=== PATIENT | female | born 1990 | race Caucasian/White ===

== ENCOUNTER 2017-01-17 14:19 | Observation (INO) | payer OTHER ==
[~2017-01-17] VITALS: Ht 165.1 cm; Wt 125.9 kg
[~2017-01-17 14:19] MED LIST: ALBU8.5H2 INHALATION; BENZ-12 PO; DIPH50C PO; Docusate Sodium PO; Ibuprofen PO; Oxycodone/Acetaminophen PO
[2017-01-17 14:24] VITALS: BP 150/116; PULSE 90; RESP 14; O2SAT 100
--- NOTE | 2017-01-17 14:48 | ED.REPORT ---
HPI-Chest Pain Under 40 Date of Service Jan 17, 2017 ED Provider: Jerrell Franz DO Pt is a 26 year old female with a hx of anxiety presenting to the ED complaining of intermittent aching chest pain left greater than right onset last night with episodes lasting about 5 seconds. Associated symptoms include passing more gas than usual, palpitations, nausea, and increased urinary frequency. Denies fever, chills, SOB, wheezing, lightheadedness, syncope, constipation, or vomiting. She has worn a halter monitor for a week in the past due to palpitations which was negative. She states that Dr. Flaherty did not see any PVCs on the halter monitor. Her mother and daughter both have a hx of prolonged QT syndrome. Pt has been off her Lexapro for just over a month. Nursing Notes Stated Complaint: CHEST PAIN/ RIGHT ANKLE PAIN Chief Complaint: Chest Pain Nursing Notes Reviewed: Yes Allergies: Coded Allergies: Shellfish (Verified Allergy, Severe, Throat sweling, 06/09/13) Iodine and Iodide Containing Produc (Verified Allergy, Unknown, 02/11/16) Scheduled Genevieve Root (Genevieve) 250 Mg Capsule 250 MG PO DAILY [place]-3 Fatty Acids (Fish Oil) 500 Mg Capsule.dr 500 MG PO DAILY Turmeric Root Extract (Turmeric) 500 Mg Capsule 500 MG PO DAILY Scheduled PRN Ibuprofen (Ibuprofen) 200 Mg Capsule 600 MG PO BID PRN PRN For Pain General Time Seen by MD: 14:46 Chief Complaint Chest pain Hx Obtained From: Patient Arrived By: Walk-in Sudden in Onset?: No Onset Occurred: Yesterday Symptom Duration: Intermittent Location: : Chest left: Chest right Severity: Current: No pain currently Severity: Maximum: Moderate Recent Healthcare: No recent hospitalization, Recent doctor visit Similar Sx Previous: Yes Past Medical History Past Medical History Possible prolonged Qt syndrome Past Surgical History Reports: (x2), Cholecystectomy Reports: Tubal ligation Family History Mother and daughter both have prolonged QT syndrome. Her mother had a cardiac arrest last month December 2016. Her aunt also had a cardiac arrest. Reports: Hypertension Reports: Other Smoking History Never Smoker Social History Drug Use: Denies drug use Other Social History: Local resident Ambulatory Status Independent Review of Systems Reports increased flatulence Constitutional: Denies: Chills, Fever Respiratory: Denies: Shortness of breath, Wheezing Cardiovascular: Reports: Chest pain, Palpitations GI: Reports: Nausea, Denies: Constipation, Vomiting Neurologic: Denies: Lightheaded, Syncope Complete sys rev & neg: except as marked. Female: Reports: Urinary frequency Physical Exam Initial Vital Signs Vital Signs (First) Date Time Temp Pulse Resp B/P Pulse Ox O2 Delivery O2 Flow Rate FiO2 01/17/17 14:24 36.7 90 14 150/116 100 Room Air Initial VS: Reviewed Head / Eyes: Atraumatic, Normocephalic, PERRL ENT: Mucous membranes moist, Conjunctiva normal, No scleral icterus Neck: Supple, Non-tender, Full range of motion Abdomen / GI: Soft, Non-tender, No guarding, No rebound, No distention Extremities: Vascular intact, Neuro intact, No swelling, No tenderness Skin: Warm, Dry, No cyanosis Neurologic: Alert, Oriented, Nonfocal Psychiatric: Mood/affect normal, Behavior normal, Normal thought content General/Constitutional: Awake, Alert Appearance / Presentation: Positive: Obese Respiratory / Chest: Atraumatic, Breath sounds NL, Breath sounds = bilat, No respiratory distress Cardiovascular: Heart rate NL, Regular rhythm, Heart sounds NL, No gallop, No murmurs, No rubs Interpretation & Diagnostics Lab Results Interpretation Result Diagram: 01/17/17 1446 01/17/17 1446 Test 01/17/17 14:46 01/17/17 15:57 White Blood Count 12.9th/mm3 (3.8-10.1) Red Blood Count 4.61mil/mm3 (3.90-5.20) Hemoglobin 13.7g/dL (12.0-15.6) Hematocrit 40.4% (35.0-46.0) Mean Corpuscular Volume 87.6fL (81-100) Mean Corpuscular Hemoglobin 29.7pg (27.0-35.0) Mean Corpuscular Hemoglobin Concent 33.9% (32.0-37.0) Red Cell Distribution Width 13.0% (12.3-15.4) Platelet Count 319bil/L (150-400) Neutrophils (%) (Auto) 79.7% (40-74) Lymphocytes (%) (Auto) 15.8% (14-46) Monocytes (%) (Auto) 3.9% (4-12) Eosinophils (%) (Auto) 0.2% (0-5) Basophils (%) (Auto) 0.2% (0-3) Sodium Level 140mEq/L (134-144) Potassium Level 3.9mEq/L (3.5-5.2) Chloride Level 103mEq/L (97-108) Carbon Dioxide Level 20mmol/L (18-29) Blood Urea Nitrogen 9mg/dL (6-20) Creatinine 0.61mg/dL (0.57-1.00) Estimat Glomerular Filtration Rate 167mL/min (>59) Glucose Level 102mg/dL (60-99) Calcium Level 9.4mg/dL (8.5-10.1) Magnesium Level 2.2mg/dL (1.6-2.6) Total Bilirubin 0.3mg/dL (0.0-1.2) Aspartate Amino Transf (AST/SGOT) 18U/L (0-50) Alanine Aminotransferase (ALT/SGPT) 20U/L (0-32) Alkaline Phosphatase 97U/L (25-150) Troponin T < 0.010ug/L (0.0-0.011) Total Protein 7.5g/dL (6.4-8.4) Albumin 4.2g/dL (3.4-5.0) Hold Urine Received (Received) ECG Interpretation ECG Interpretation: QTC 513. No other abnormalities. Time: 14:59 Interpreted by: ED physician Normal ECG Interpretation: Normal sinus rhythm (90) X-Ray Chest Interpretation Chest Xray Interpretation: IMPRESSION: Negative chest. No acute cardiopulmonary process is evident. Dictated by: Liam Ellington M.D. on 01/17/2017 at 14:29 View: Portable, 1 view Interpretation / Wet Read by: Interpret - Radiologist Re-Eval/Medical Decision Med Decision/Clinical Course Concern for arrhythmia with strong family history of long QT as well as familial history of cardiac arrest. Patient has a prolonged QT interval on EKG today. Cardiology is contacted and recommended admission and observation. Re-Evaluation/Progress #1: Time of Eval: 15:05 Patient Status: Condition improved Re-Evaluation/Progress Note: Discussed PMHX and performed physical exam. Re-Evaluation/Progress #2: Time of Eval: 16:00 Patient Status: Condition improved Re-Evaluation/Progress Note: Discussed EKG, lab and radiology results and plan for consultation with Dr. Flaherty. Re-Evaluation/Progress #3: Time of Eval: 16:15 Patient Status: Condition improved Re-Evaluation/Progress Note: Discussed consultation with Dr. Flaherty and plan for admission. Pt understands and agrees. Consultation #1: Referral / Consult Name: Anjel Flaherty MD Consulted With: Cardiology Call Returned at: 16:06 Note: Pt the pt on Propranolol. Admit the pt for observation on telemetry and further testing. Have the hospitalist call Dr. Flaherty in the morning and relay any findings. Consultation #2: Referral / Consult Name: Colby Morataya MD Consulted With: Hospitalist Call Returned at: 16:35 Plastic Molding Operator: Will see patient, Agrees with plan, Accepts admit Counseled Regarding: Diagnosis, Lab results, Need for admission Discharge & Departure Primary Impression: Long QT interval Additional Impression: Palpitations Disposition: ADMITTED TO HOSPITAL Discharge Condition All VS Reviewed: Yes Condition: Improved Referrals: Alcon Apple MD (PCP) Anjel Flaherty MD Attestation Portions of this note were transcribed by Emmanuelle Vasquez. I, Dr. Franz personally performed the history, physical exam and medical decision-making; I reviewed and confirmed the accuracy of the information in the transcribed note. Signed by: Pamela Clements, 01/17/2017. copies to: Alcon Apple MD; Anjel Flaherty MD, Timothy S DO Jan 17, 2017 14:48 EMMANUELLE VASQUEZ Jan 17, 2017 15:02
[2017-01-17 14:53] LABS: BASOPHILS % (AUTO) 0.2 % (0-3); EOSINOPHILS % (AUTO) 0.2 % (0-5); MONOCYTES % (AUTO) 3.9 % (4-12); Mean Corpuscular Hemoglobin 29.7 pg (27.0-35.0); Mean Corpuscular Volume 87.6 fL (81-100); NEUTROPHILS % (AUTO) 79.7 % (40-74); Platelet Count 319 bil/L (150-400)
[2017-01-17 15:31] LABS: Magnesium 2.2 mg/dL (1.6-2.6)
[2017-01-17 15:33] LABS: TROPONIN T < 0.010 ug/L (0.0-0.011)
--- NOTE | 2017-01-17 15:34 | DRSVH ---
PROCEDURE: X-RAY CHEST ONE VIEW, PORTABLE ([id number]) INDICATIONS: pain TECHNIQUE: One view of the chest was acquired. COMPARISON: [facility], CR, XR CHEST 2VW, 02/11/2016, 20:27. FINDINGS: Surgical changes and devices: None. Lungs and pleura: No pleural effusions or pneumothorax. Lungs are clear. Mediastinum: Mediastinal contours appear normal. Heart size is normal. Bones and chest wall: No suspicious bony lesions. Overlying soft tissues appear unremarkable. IMPRESSION: Negative chest. No acute cardiopulmonary process is evident. Dictated by: Liam Ellington M.D. on 01/17/2017 at 14:29 Approved by: Liam Ellington M.D. on 01/17/2017 at 14:32
[2017-01-17 16:12] VITALS: BP 148/84; PULSE 93; RESP 19; O2SAT 100
[2017-01-17] MEDS ORDERED: TURM500C3 PO (17:13)
[2017-01-17] MEDS ORDERED: GING250C PO (17:13)
[2017-01-17] MEDS ORDERED: IBUP200C PO (17:13)
[2017-01-17] MEDS ORDERED: OMEG500C PO (17:13)
[2017-01-17] MEDS ORDERED: Ondansetron 2 mg/mL 2 mL Inj IVPUSH PRN (17:15)
[2017-01-17] MEDS ORDERED: Alum-Mag Hydrox-Simeth 30 mL Suspension PO PRN (17:15)
--- NOTE | 2017-01-17 17:19 | PCM.HPMED ---
Subjective Date of Service Jan 17, 2017 Primary Provider: Admitting Physician: Colby Morataya MD Primary Care Physician: Alcon Apple MD Attending Physician: Colby Morataya MD Admit Status: From the Emergency Department, 23-Hour Observation, Admit to [facility], Remote Telemetry Chief Complaint: Palpitations History of Present Illness: This is a 26-year-old female palpitation since last admitted chest aching. She denies any exertional component to these symptoms. Nothing in particular is making them better or worse. She denies any syncopal episodes. She does have a known history of long QT. Her mother recently was hospitalized for a V. fib arrest and diagnosed QT syndrome and discharged with an ICD. Her daughter's been diagnosed clinically with a type II along QT syndrome as well. The patient had been working with Dr. Flaherty cardiology year ago was on propranolol 3 times a day. They were working towards definitive management of her possible QT syndrome and she lost her insurance. She has not had genetic testing. She denies recent rhinorrhea cough or sore throat. No nausea or dyspepsia. No exertional dyspnea, orthopnea or edema. No history of syncope. Review of Systems: She denies recent diarrhea and hematuria dysuria. No fevers or chills. Some anxiety over being in the emergency department. All else reviewed and otherwise unremarkable except as noted in history of present illness. Allergies Coded Allergies: Shellfish (Verified Allergy, Severe, Throat sweling, 06/09/13) Iodine and Iodide Containing Produc (Verified Allergy, Unknown, 02/11/16) Home Medications Scheduled Genevieve Root (Genevieve) 250 Mg Capsule 250 MG PO DAILY [place]-3 Fatty Acids (Fish Oil) 500 Mg Capsule.dr 500 MG PO DAILY Turmeric Root Extract (Turmeric) 500 Mg Capsule 500 MG PO DAILY Scheduled PRN Ibuprofen (Ibuprofen) 200 Mg Capsule 600 MG PO BID PRN PRN For Pain PMH Possible long QT syndrome Surgical History Cholecystectomy 2 Family History Long QT syndrome, daughter with type II. Social History Occupation: [id number] mom Hx Alcohol Use: No Hx Substance Use: No Smoking Status: Never Smoker Living Arrangement: with Family Exam Vital Signs Vital Sign - Last Date Time Temp Pulse Resp B/P Pulse Ox O2 Delivery O2 Flow Rate FiO2 01/17/17 16:12 36.5 93 19 148/84 100 Room Air Exam Oriented 3. No distress. Fluent speech. Normal affect. Normal skull. Normal nose and ears. Anicteric sclera, symmetric pupils Oropharynx is unremarkable, no facial droop. Neck is supple, normal thyroid. No adenopathy. Lungs are clear, normal effort rate. Heart is regular without murmur gallop or rub. Abdomen soft, nondistended or tender. Extremities are free of pedal edema. Good radial and pedal pulses. Skin is free of rash, lesions. No petechiae or ecchymosis. Joints are grossly normal. Cranial nerves are grossly normal. Motor strength is normal in all extremities. Normal muscular tone. Lab and Diagnostics Result Diagram: 01/17/17 1446 01/17/17 1446 12-lead ECG QT 419, QTC 513 Assessment & Plan 1. Palpitations, not present on admission. Plan is to admit observation status and follow on telemetry. Propranolol 10 mg 3 times a day per Dr. Flaherty' s recommendations. We will call him in the morning with a follow-up assessment and ongoing planning. 2. Long QTC, present on admission and active. Family history. Same plan as above. Propranolol 10mg 3 times a day. Patient's forces stationed She is admitted observation status, expected length of stay is one night. Pain Evaluation: Adequate Pain Control Resuscitation Status: CPR: Attempt Resuscitation Time spent 40 minutes Colby Morataya MD Jan 17, 2017 17:19
[2017-01-17 17:36] VITALS: BP 123/87; PULSE 90; RESP 16; O2SAT 96
[2017-01-17 17:50] VITALS: PULSE 96
[2017-01-17 17:55] VITALS: BP 140/86; PULSE 88; RESP 14; O2SAT 96
--- NOTE | 2017-01-17 18:00 | NUR ---
admit Patient arrived on unit A&O x3. VS WNL except BP 140/86. Denies cp or palpitations at this time. Admission completed by Kwadwo Marin except for physical assessment. Med rec completed by jennifer alexandra in ED.
[2017-01-17] MEDS ORDERED: MetoCLOpramide 5 mg/mL 2 mL Inj IVPUSH PRN (20:10)
[2017-01-17 20:57] VITALS: BP 145/76; PULSE 87; RESP 16; O2SAT 97
[2017-01-18 01:09] VITALS: BP 112/72; PULSE 72; RESP 16; O2SAT 98
[2017-01-18 03:08] VITALS: PULSE 81
[2017-01-18 04:38] VITALS: BP 108/70; PULSE 74; RESP 16; O2SAT 98
--- NOTE | 2017-01-18 05:55 | NUR ---
Nausea/Headache Pt complained of nausea and headache 07/20. MD notified. New order: Reglan, IV push. Administered Reglan and Tylenol. Nausea and headache, resolved. Pt rested through the night with no further complaints of pain or nausea. Frequent rounding in place. Call light within reach, using appropriately. Pleasant and cooperative with care.
[2017-01-18] MEDS ORDERED: PROP20TA5 PO (07:36)
--- NOTE | 2017-01-18 07:43 | PCM.DIMED ---
Discharge Instructions Date of Service Jan 18, 2017 Dates of Hospitalization Jan 17, 2017 at 16:58 Discharge Diagnosis Discharge Diagnosis Palpitations with QTc prolongation Call your provider Call your provider for: Fever or Chills, Chest pain Patient Instructions Provider: Anjel Flaherty MD Follow-up in: 1 week Stan Gandhi MD Jan 18, 2017 07:43
[2017-01-18 08:00] VITALS: PULSE 84
--- NOTE | 2017-01-18 08:09 | PCM.DC.MED ---
Discharge Summary Date of Service Jan 18, 2017 Dates of Hospitalization Date of Hospital Admission Jan 17, 2017 at 16:58 Date of Discharge: Jan 18, 2017 Providers: Admitting Physician: Colby Morataya MD Primary Care Physician: Alcon Apple MD Attending Physician: Regis Alcala MD Diagnosis at Time of Discharge Diagnosis at Time of Discharge Palpitations with QTc prolongation Consultations Dr. Flaherty from Cardiology Procedures ECG 12 Lead QT 419, QTC 513 Brief History This is a 26-year-old female palpitation since last admitted chest aching. She denies any exertional component to these symptoms. Nothing in particular is making them better or worse. She denies any syncopal episodes. She does have a known history of long QT. Her mother recently was hospitalized for a V. fib arrest and diagnosed QT syndrome and discharged with an ICD. Her daughter's been diagnosed clinically with a type II along QT syndrome as well. The patient had been working with Dr. Flaherty cardiology year ago was on propranolol 3 times a day. They were working towards definitive management of her possible QT syndrome and she lost her insurance. She has not had genetic testing. She denies recent rhinorrhea cough or sore throat. No nausea or dyspepsia. No exertional dyspnea, orthopnea or edema. No history of syncope. Hospital Course 1. Palpitations, not present on admission. Was admitted underobservation status and follow on telemetry. Propranolol 10 mg 3 times a day per Dr. Flaherty' s recommendations. One episode of prolongation overnight, stayed normal most of the times. Follow up with Dr. Flaherty outpatient for further evaluation 2. Long QTC, present on admission and active. Family history. Same plan as above. Propranolol 10mg 3 times a day. Exam Vital Signs (Last) Date Time Temp Pulse Resp B/P Pulse Ox O2 Delivery O2 Flow Rate FiO2 01/18/17 04:38 36.4 74 16 108/70 98 Room Air Test 01/17/17 14:46 01/17/17 15:57 01/18/17 07:57 Sodium Level 140mEq/L (134-144) Potassium Level 3.9mEq/L (3.5-5.2) Chloride Level 103mEq/L (97-108) Carbon Dioxide Level 20mmol/L (18-29) Blood Urea Nitrogen 9mg/dL (6-20) Creatinine 0.61mg/dL (0.57-1.00) Estimat Glomerular Filtration Rate 167mL/min (>59) Glucose Level 102mg/dL (60-99) Calcium Level 9.4mg/dL (8.5-10.1) Magnesium Level 2.2mg/dL (1.6-2.6) Total Bilirubin 0.3mg/dL (0.0-1.2) Aspartate Amino Transf (AST/SGOT) 18U/L (0-50) Alanine Aminotransferase (ALT/SGPT) 20U/L (0-32) Alkaline Phosphatase 97U/L (25-150) Total Protein 7.5g/dL (6.4-8.4) Albumin 4.2g/dL (3.4-5.0) Hold Urine Received (Received) Discharge Medications Discharge Medications Genevieve Root (Genevieve) 250 Mg Capsule 250 MG PO DAILY (Reported) [place]-3 Fatty Acids (Fish Oil) 500 Mg Capsule.dr 500 MG PO DAILY (Reported) Propranolol HCl (Propranolol HCl) 20 Mg Tablet 10 MG PO TID Prescribed by: REGIS ALCALA MD Turmeric Root Extract (Turmeric) 500 Mg Capsule 500 MG PO DAILY (Reported) As needed Ibuprofen (Ibuprofen) 200 Mg Capsule 600 MG PO BID PRN PRN For Pain (Reported) Followup Plan Provider: Anjel Flaherty MD Follow-up in: Other (Saturday, 21 january 2017) Time spent 35 mins Regis Alcala MD Jan 18, 2017 08:09
[2017-01-18 08:10] LABS: BASOPHILS % (AUTO) 0.2 % (0-3); EOSINOPHILS % (AUTO) 0.7 % (0-5); Mean Corpuscular Hemoglobin 29.2 pg (27.0-35.0); Mean Corpuscular Volume 88.6 fL (81-100); Platelet Count 338 bil/L (150-400)
--- NOTE | 2017-01-18 09:53 | NUR ---
discharge pt ordered for discharge home and to follow up outpatient. pt alert and oriented, denies pain/dizziness. discharge medications and instructions reviewed with patient. pt ambulated out with steady gait and all belongings at 0845.
== END 2017-01-18 08:30 | disposition home or self-care (01) ==
LOC: SED 14:19 → MPC 16:58
PROVIDERS: ADMIT Hospitalist; ATTEND Internal Medicine
DX: R00.2 Palpitations (principal); I45.81 Long QT syndrome
CPT/HCPCS: 36415; 71010; 80053; 82948; 83735; 84484; 85025; 93005; 96374; 99285; G0378; J2060; J2765